=== PATIENT | female | born 1950 | race Caucasian/White ===

== ENCOUNTER → 2020-10-13 | Day surgery (SDC) | payer OTHER ==
[~2020-10-13] VITALS: Ht 165.1 cm; Wt 62.9 kg
[~2020-10-13] MED LIST: JANUVIA100 MG PO; LEVAQUIN750 MG PO; LOSARTAN POTASS25 MG PO; METFORMIN HCL500 MG PO; NORTRIPTYL10 MG/5 ML PO; ONE-DAILY MULT1 EACH PO; TRESIBA FL100 UNIT/1 SC; VITAMIN D350 MCG PO; ZOCOR40 MG PO
[2020-10-13 08:06] LABS: HCT 43.5 % (37.0-47.0); HGB 14.6 g/dl (12.5-16.0); MCH 28.9 pg (25.0-31.0); MCHC 33.6 g/dL (32.0-36.0); MCV 86.1 fL (78.0-100.0); MPV 8.7 fL (6.0-9.5); RBC 5.05 M/uL (4.20-5.40); RDW 14.2 % (11.5-14.0); WBC 11.1 K/uL (4.0-10.5)
[2020-10-13 08:35] LABS: ALBUMIN 3.8 g/dL (3.4-5.0); BILIRUBIN - TOTAL 0.4 mg/dL (0.2-1.0); BUN/CREAT RATIO (CALC) 22.5 RATIO; CREATININE 0.71 mg/dL (0.51-0.95); GLOBULIN (CALCULATION) 4.4 g/dL; POTASSIUM 4.2 mmol/L (3.5-5.1); TOTAL PROTEIN 8.2 g/dL (6.4-8.2)
== END | disposition home or self-care (01) ==
LOC: FAS 07:35
PROVIDERS: Surgery
DX: Z12.11 Encounter for screening for malignant neoplasm of colon (principal); K57.30 Diverticulosis of large intestine without perforation or abscess without bleeding; G43.909 Migraine, unspecified, not intractable, without status migrainosus; E11.9 Type 2 diabetes mellitus without complications; E78.00 Pure hypercholesterolemia, unspecified; F17.210 Nicotine dependence, cigarettes, uncomplicated; Z88.1 Allergy status to other antibiotic agents; Z88.2 Allergy status to sulfonamides; Z79.84 Long term (current) use of oral hypoglycemic drugs; Z79.899 Other long term (current) drug therapy
CPT/HCPCS: 36415; 80053; J1610; J2704; J7120